=== PATIENT | female | born 1960 | race Two or more races ===

== ENCOUNTER 2018-11-08 07:00 | Inpatient (IN) ==
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
[~2018-11-08 07:00] MED LIST: ACETAMINOPHEN 500 MG TAB PO SCH; CEFAZOLIN 2000MG 2,000 MG/15 ML SYR IV SCH; CeleBREX 200 MG CAP PO SCH; GABAPENTIN 300 MG x 2 PO SCH; HYDROmorphone INJ 2 MG/ML SYR/VIAL ONE; LR 15ML/HR IV SCH; MIDAZOLAM HCL 1 MG/ML 2ML VIAL ONE; fentaNYL citrate 100 MCG/2 ML VIAL ONE
[2018-11-08 08:54] LABS: Appearance Urine Clear (Clear); Bilirubin Urine Negative (Negative); Blood Urine Negative (Negative); Color Urine Yellow; Glucose Urine UA Negative (Negative); Ketones Urine Negative (Negative); Leukocyte Esterase Urine Negative (Negative); Nitrite Urine Negative (Negative); Protein Urine Negative (Negative); Urobilinogen Urine Negative (Negative)
--- NOTE | 2018-11-08 09:11 | History & Physical Report ---
Date of Service November 08, 2018 Assessment & Plan (1) Neurogenic claudication due to lumbar spinal stenosis: Removal of instrumentation L2-S1 decompression and fusion T10-L2 with iliac bolts Present on Admission?: Yes History of Present Illness Chief Complaint: Back and bilateral leg pain Primary Care Provider: Melissa Alva This is a 58-year-old female who presents with back and bilateral leg pain. After failing extensive course of nonoperative care she is here for surgical intervention. Allergies Allergy/AdvReac Type Severity Reaction Status Date / Time iodine Allergy Severe "EVERYTHING Verified 10/23/18 09:17 SWELLS UP" bee venom protein (honey bee) Allergy Anaphylaxis Verified 10/04/18 10:24 povidone-iodine Allergy Redness of Verified 10/04/18 10:24 [From Betadine] Skin shellfish derived Allergy Anaphylaxis Verified 10/04/18 10:24 soap [From Betadine] Allergy Redness of Verified 10/04/18 10:24 Skin Home Medications Home Medications Medication Instructions Recorded Confirmed Type albuterol sulfate [Ventolin HFA] 2 puff INHALATION Q6H PRN 10/04/18 11/08/18 History ascorbic acid (vitamin C) [Vitamin 100 mg PO QAM 10/04/18 11/08/18 History C] baclofen 10 mg PO TID 10/04/18 11/08/18 History budesonide-formoterol [Symbicort] 2 puff INHALATION DAILY 10/04/18 11/08/18 History calcium carbonate [Calcium 600] 600 mg PO QPM 10/04/18 11/08/18 History citalopram 40 mg PO QPM 10/04/18 11/08/18 History cyanocobalamin (vitamin B-12) 500 mcg PO QAM 10/04/18 11/08/18 History [Vitamin B-12] diphenhydramine HCl [Banophen] 50 mg PO TID 10/04/18 11/08/18 History epinephrine [EpiPen] 0.3 mg IM Q3H PRN 10/04/18 10/04/18 History fluticasone propionate [Flonase 2 spray INTRANASAL QAM 10/04/18 11/08/18 History Allergy Relief] furosemide 40 mg PO UD 10/04/18 11/08/18 History gabapentin 800 mg PO TID 10/04/18 11/08/18 History hydrocodone-acetaminophen 1 tab PO TID PRN 10/04/18 11/08/18 History multivitamin 1 tab PO QAM 10/04/18 11/08/18 History omeprazole 40 mg PO QAM 10/04/18 11/08/18 History oxybutynin chloride 10 mg PO QPM 10/04/18 11/08/18 History potassium chloride 20 meq PO QPM 10/04/18 11/08/18 History ranitidine HCl 300 mg PO HS 10/04/18 11/08/18 History spironolactone 25 mg PO BID 10/04/18 11/08/18 History tiotropium bromide [Spiriva with 1 cap INHALATION DAILY 10/04/18 11/08/18 History HandiHaler] trazodone 50 mg PO HS 10/04/18 11/08/18 History Past Med/Surg History Family History Mother Family history of diabetes mellitus Uncle Family history of diabetes mellitus Aunt Family history of diabetes mellitus Social History Preferred Language: [place] Communication Ability: Effective Auth Specialist Required: No Beliefs That Will Affect Care: None Current Living Situation: Spouse Other Information That Helps Us Care for You: No Feels Safe at Home: Yes Safety Concerns: Feels Safe At This Time Smoking Status: Current every day smoker Hx Alcohol Use: No Hx Substance Use: No Physical Exam Vital Signs (Past 24 Hours): Last Vital Signs Temp 36.7 C 11/08/18 08:50 Pulse 69 11/08/18 08:50 Resp 18 11/08/18 08:50 BP 120/90 11/08/18 08:50 Pulse Ox 94 11/08/18 08:50 Results & Data Medications Administered Acetaminophen (Tylenol) 1,000 mg PO PREOP ODETTE Stop: 11/08/18 18:00 Last Admin: 11/08/18 08:33 Dose: 1,000 mg Documented by: [id number] Celecoxib (Celebrex) 200 mg PO PREOP ODETTE Stop: 11/08/18 18:00 Last Admin: 11/08/18 08:32 Dose: 200 mg Documented by: [id number] Gabapentin (Neurontin) 600 mg PO PREOP ODETTE Stop: 11/08/18 18:00 Last Admin: 11/08/18 08:33 Dose: Not Given Documented by: [id number] Lactated Ringer's (Lr) 1,000 mls @ 15 mls/hr IV .Q24H ODETTE Stop: 11/09/18 05:59 Last Admin: 11/08/18 08:33 Dose: 15 mls/hr Documented by: [id number]
--- NOTE | 2018-11-08 09:11 | History & Physical Bridge Note ---
Date of Service November 08, 2018 History & Physical Bridge Note I have examined the patient, reviewed the History & Physical and in the interval since the performance of the History & Physical I have noted the following changes of clinical significance: no changes noted
[2018-11-08] MEDS ORDERED: HYDROmorphone INJ 2 MG/ML SYR/VIAL ONE ×4 (09:21→13:15)
[2018-11-08] MEDS ORDERED: ALBUMIN HUMAN 5% 12.5 GM/250 ML VIAL IV ONE ×2 (09:21→13:15)
[2018-11-08] MEDS ORDERED: BUPIVACAINE/EPINEPHRINE 0.5% MPF 1:200,000 30 ML VIAL ONE (09:23)
[2018-11-08] MEDS ORDERED: BACITRACIN INJ 50,000 UNIT VIAL ONE (09:23)
[2018-11-08] MEDS ORDERED: THROMBIN FOR SOLN 20000 UNIT KIT ONE (10:15)
[2018-11-08] MEDS ORDERED: fentaNYL citrate 100 MCG/2 ML VIAL ONE ×7 (10:18→12:59)
[2018-11-08] MEDS ORDERED: FLOSEAL HEMOSTATIC MATRIX 10ML TOP ONE ×5 (10:21→12:41)
[2018-11-08] MEDS ORDERED: VANCOMYCIN HCL 1000MG/20ML VIAL ONE (10:52)
[2018-11-08] MEDS ORDERED: GENTAMICIN SULFATE 40 MG/ML 2 ML VIAL ONE (10:52)
[2018-11-08] MEDS ORDERED: ePHEDrine sulfate 50 MG/ML AMP IV PRN (10:55)
[2018-11-08] MEDS ORDERED: ONDANSETRON INJ 2 MG/ML 2 ML VIAL IV PRN (10:55)
[2018-11-08] MEDS ORDERED: ATROPINE SULFATE 0.1 MG/ML 10ML SYR IV PRN (10:55)
--- NOTE | 2018-11-08 10:59 | Procedure Note ---
Procedure Note Date of Service November 08, 2018 Radial arterial line placed in ASU2 prior to surgery in preparation for back surgery with Dr. Romeo. Patient on ASA monitors and given 2 mg midazolam and 50 mcg of fentanyl for sedation. Left wrist prepped with chlorhexidine and draped with sterile towels. Site infiltrated with 1 cc of 1% lidocaine. 20 G angiocath placed under sterile technique utilizing sterile gloves, surgical hats and masks. Catheter threaded using seldinger technique with return of pulsatile, bright red blood. Site covered with occlusive dressing and taped in place. Waveform consistent with correct arterial placement. After placement, fingers of procedural hand had normal perfusion. Patient tolerated procedure well without complications.
[2018-11-08] MEDS ORDERED: PROPOFOL IV EMULSION 10 MG/ML 20 ML VIAL IV ONE ×2 (11:25→11:26)
[2018-11-08] MEDS ORDERED: ESMOLOL HCL INJ 10 MG/ML 10ML VIAL IV ONE ×2 (11:25→14:02)
[2018-11-08] MEDS ORDERED: NEOSTIGMINE METHYLSULFATE 1 MG/ML 10ML VIAL ONE (11:26)
[2018-11-08] MEDS ORDERED: raNITIdine HCl 25 MG/ML VIAL ONE (11:26)
[2018-11-08] MEDS ORDERED: ROCURONIUM BROMIDE 10 MG/ML 5 ML VIAL ONE (11:26)
[2018-11-08] MEDS ORDERED: ONDANSETRON INJ 2 MG/ML 2 ML VIAL ONE (11:26)
[2018-11-08] MEDS ORDERED: GLYCOPYRROLATE 0.2 MG/ML VIAL ONE (11:26)
[2018-11-08] MEDS ORDERED: DEXAMETHASONE SOD INJ 4 MG/ML VIAL ONE (11:26)
[2018-11-08] MEDS ORDERED: ePHEDrine sulfate 50 MG/ML SYR ONE (11:26)
[2018-11-08] MEDS ORDERED: PHENYLEPHRINE 100MCG/ML 5ML SYR ONE (11:26)
[2018-11-08] MEDS ORDERED: METOCLOPRAMIDE HCL INJ 5 MG/ML 2 ML VIAL ONE (11:26)
[2018-11-08] MEDS ORDERED: LIDOCAINE HCL 2% 2 ML VIAL/AMP(20MG/ML) INFIL ONE (11:26)
[2018-11-08] MEDS ORDERED: ALBUTEROL HFA INHALER 8.5 GM ONE (11:47)
[2018-11-08] MEDS ORDERED: VOLUVEN IN NSS IV ONE (11:47)
[2018-11-08] MEDS ORDERED: CEFAZOLIN 250 MG/ML 1 GM VIAL ONE ×3 (12:56→13:50)
[2018-11-08 13:42] LABS: Hematocrit (blood only) 31.4 % (37-47); Hemoglobin 10.6 g/dL (12.0-16.0)
[2018-11-08 13:54] LABS: Hematocrit (blood only) 29.5 % (37-47); Hemoglobin 9.8 g/dL (12.0-16.0)
--- NOTE | 2018-11-08 13:59 | Operative Report ---
Post Operative Report Pre & Post Diagnosis Operation Date: 11/08/18 09:15 Pre-Op Diagnosis: LUMBAR SPINAL STENOSIS W/NEUROGENIC CLAUDICATION Post-Op Diagnosis: LUMBAR SPINAL STENOSIS W/NEUROGENIC CLAUDICATION Procedure Operation Date: 11/08/18 09:15 Actual Procedures #1 removal of posterior segmental instrumentation L2-S1. #2 expiration of fusion L2-S1. #3 lumbar decompression bilateral medial facetectomies foraminotomies T12-L1 L1-2. #4 posterior spinal fusion 10 to S1. #5 bilateral SI joint fusions. #6 placement posterior segmental instrumentation T10-S1 with bilateral iliac bolts. #7 interbody fusion L1-2. #8 history of peek cage 9 mm in height at L1-2. #9 placement infuse collagen sponge, mass graft in the posterior lateral gutters and ostial amp and interbody space. #10 placement of local autograft in the posterior lateral gutters. Surgeon Lalito Romeo DO Immigration Investigator Latoya Salas Estimated Blood Loss 1,450 Findings Consistent with Post-Op Diagnosis Specimens None Description of Procedure Patient was met with preoperatively case discussed all questions addressed. After informed consent obtained patient was taken to the operative suite underwent intubation and placed in a prone position on the Justo table on top of the Elmer frame. All bony prominences well-padded eyes inspected to ensure no external pressure placed upon but this point the thoracolumbar spine was prepped and draped in the normal sterile fashion. Sharp dissection with the assistance of Bovie cautery was performed down to and exposing the lamina and transverse processes of T10-11 T12-L1 and instrumentation at L2 L3-L4-L5 and S1 levels bilaterally. I also exposed the bilateral SI joints and iliac crest medially. Proceeded move the hardware bilaterally at L2 L3-L4-L5 and S1 explain the fusion mass noting it to be intact. Then performed a complete laminectomy of L1 and T12 from a caudal cephalad fashion including medial facetectomies fo raminotomies addressing severe lateral recess and foraminal disease. Pedicle screws were then placed in T10-T11 L1-L2 L4-5 and S1 levels bilaterally including placement of bilateral iliac bolts. Appropriate sized rods were then cut contoured and placed. By way of a transforaminal approach and left complete discectomy of L1 to was performed and endplates curetted to subcortical bleeding bone and a 9 x 22 mm peek cage filled with ostium bone graft tapped in position. The rods were then locked in final position. A cross-link was locked in position. The bilateral SI joints were then burred to subcortical bleeding bone and packed with infuse collagen sponge master graft. And then burred the lamina and transverse processes of T10-T11 T12-L1 and L2 and the remaining bone graft placed in the posterior gutters. A cross-link locked in position. A 15 round REYNOLD drain inserted. Incision was then closed with 1 Vicryl in the fascia 2-0 Vicryl subtenons seen for Monocryl for final skin closure. Steri-Strip sterile dressings placed. Patient will continue to PACU stable disc. Please note Latoya Salas present throughout the entire procedure involved in patient positioning complex portions of the surgery and final skin closure. I attest to the content of the Intraoperative Record and any orders documented therein. Any exceptions are noted below.
[2018-11-08] MEDS ORDERED: KETOROLAC 30 MG/ML VIAL ONE (14:07)
--- NOTE | 2018-11-08 14:23 | Fluoroscopy Report ---
LUMBAR SPINE, INTRAOPERATIVE FLUOROSCOPY HISTORY: L2-S1 hardware removal. T10-L2 decompression and fusion with iliac bones.. FLUOROSCOPY TIME: 38 seconds. FINDINGS: Intraoperative fluoroscopy was provided for the lumbar spine. 6 fluoroscopic spot images we re obtained. Posterior decompression fusion from T10 through S1 with bilateral sacroiliac screws. The hardware appears intact. IMPRESSION: Fluoroscopy provided for a T10-S1 fusion. Electronically signed by: Jeremias Velazquez M.D. 11/08/2018 2:22 PM
[2018-11-08] MEDS: fentaNYL citrate 100 MCG/2 ML VIAL IV PRN ×4 (15:05→15:20)
[2018-11-08] MEDS: HYDROmorphone INJ 1 MG/ML SYRINGE IV PRN ×4 (15:25→15:40)
--- NOTE | 2018-11-08 16:07 | Anesthesiology Progress Note ---
Date of Service November 08, 2018 Anesthesia Post Procedure Vital Signs Vital Signs: Temp Pulse Pulse Resp BP Pulse Ox 11/08/18 15:50 36.8 C 85 12 141/78 H 96 11/08/18 15:40 36.8 C 83 12 131/84 98 11/08/18 15:30 36.8 C 86 12 127/84 97 11/08/18 15:20 81 12 134/80 97 11/08/18 15:10 73 12 121/56 L 96 11/08/18 15:00 79 16 95/59 L 92 11/08/18 14:50 90 16 121/76 100 11/08/18 14:40 92 H 16 128/82 100 11/08/18 14:34 36.7 C 86 13 142/82 H 100 11/08/18 08:50 36.7 C 69 18 120/90 94 Pain Intensity Lower Back: Pain Intensity: 5 Notes Mental Status: alert / awake / arousable and participated in evaluation Patient Amnestic to Procedure: Yes Nausea / Vomiting: adequately controlled Pain: adequately controlled Airway Patency, RR, SpO2: stable & adequate BP & HR: stable & adequate Hydration State: stable & adequate Anesthetic Complications: no major complications apparent
[2018-11-08] MEDS ORDERED: SOD PHOSPHATE/SOD BIPHOSPHATE ENEMA 132 ML BTL PR PRN (16:32)
[2018-11-08] MEDS ORDERED: PROMETHAZINE HCL 12.5 MG in SODIUM CHLORIDE 0.9% 50 ML IV PRN (16:32)
[2018-11-08] MEDS ORDERED: METOCLOPRAMIDE HCL INJ 5 MG/ML 2 ML VIAL IV PRN (16:32)
[2018-11-08] MEDS ORDERED: FAMOTIDINE 20 MG TAB PO PRN (16:32)
[2018-11-08] MEDS ORDERED: ACETAMINOPHEN 500 MG TAB PO PRN (16:32)
[2018-11-08] MEDS ORDERED: ACETAMINOPHEN 1,000 MG/100 ML VIAL IV PRN (16:32)
[2018-11-08] MEDS ORDERED: LORazepam 0.5 MG TAB PO PRN (16:32)
[2018-11-08] MEDS ORDERED: FUROSEMIDE 40 MG TAB PO SCH (16:32)
[2018-11-08] MEDS ORDERED: MAGNESIUM HYDROXIDE SUSP 30 ML UDC PO PRN (16:32)
[2018-11-08] MEDS ORDERED: ALUMINUM/MAGNESIUM SUSP 30 ML UDC PO PRN (16:32)
[2018-11-08] MEDS ORDERED: ALBUTEROL HFA 8 GM INHALER INH PRN (16:32)
[2018-11-08] MEDS ORDERED: BACLOFEN 10 MG TAB PO PRN (16:32)
[2018-11-08] MEDS ORDERED: LORazepam 0.5 MG/1 ML VIAL IV PRN (16:32)
[2018-11-08] MEDS ORDERED: ONDANSETRON 4 MG TAB PO PRN (16:32)
[2018-11-08] MEDS ORDERED: DO NOT ADMINISTER FLU VACCINE PRN (16:32)
[2018-11-08] MEDS ORDERED: EPINEPHRINE ADULT AUTO-INJECT 0.3 MG SYR IM PRN (16:32)
[2018-11-08] MEDS ORDERED: DO NOT ADMINISTER PNEUMOCOCCAL VACCINE PRN (16:32)
[2018-11-08] MEDS ORDERED: BISACODYL 10 MG SUPP PR PRN (16:32)
[2018-11-08] MEDS: HYDROmorphone INJ 0.5 MG/0.5 ML SYR IV PRN ×2 (17:23→21:41)
[2018-11-08] MEDS: LACTATED RINGER'S 1,000 ML IV SCH ×2 (17:58→21:43)
[2018-11-08] MEDS: CEFAZOLIN 2000MG 2,000 MG/15 ML SYR IV SCH (18:54)
[2018-11-08] MEDS: SPIRONOLACTONE 25 MG TAB PO SCH (18:54)
[2018-11-08] MEDS: GABAPENTIN 800 MG TAB PO SCH ×2 (18:54→21:37)
[2018-11-08] MEDS: KETOROLAC TROMETHAMINE 15 MG/ML VIAL IV SCH ×2 (18:55→23:40)
[2018-11-08] MEDS: NICOTINE 21 MG/24 HR TDSY TD SCH (19:04)
[2018-11-08] MEDS: HYDROCODONE/ACETAMINOPHEN 10/325 TAB PO PRN (19:08)
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
[2018-11-08] MEDS: TRAZODONE HCL 50 MG TAB PO SCH (21:31)
[2018-11-08] MEDS: CITALOPRAM 40 MG TAB PO SCH (21:31)
[2018-11-08] MEDS: OXYBUTYNIN CHLORIDE XL 5 MG TABCR PO SCH (21:31)
[2018-11-08] MEDS: POTASSIUM CHLORIDE 20 MEQ TABCR PO SCH (21:32)
[2018-11-08] MEDS: DOCUSATE SODIUM/SENNA 50/8.6MG TAB PO SCH (21:35)
[2018-11-08] MEDS: CALCIUM CARBONATE 1250MG TAB PO SCH (21:35)
[2018-11-09] MEDS: CEFAZOLIN 2000MG 2,000 MG/15 ML SYR IV SCH (02:45)
[2018-11-09] MEDS: HYDROCODONE/ACETAMINOPHEN 10/325 TAB PO PRN ×3 (03:38→23:08)
[2018-11-09] MEDS: POLYETHYLENE (MIRALAX) 17 GM PACK PO SCH ×3 (05:14→18:41)
[2018-11-09] MEDS: KETOROLAC TROMETHAMINE 15 MG/ML VIAL IV SCH ×2 (05:14→13:23)
[2018-11-09 07:31] LABS: Basophils # (auto) 0.04 K/uL (0-0.2); Basophils % (auto) 0.3 %; Eosinophils # (auto) 0.03 K/uL (0-0.5); Eosinophils % (auto) 0.2 %; Hematocrit (blood only) 23.9 % (37-47); Immature Granulocytes # (auto) 0.03 K/uL (0.00-0.02); Immature Granulocytes % (auto) 0.2 %; Lymphocytes # (auto) 2.36 K/uL (1.2-3.4); Lymphocytes % (auto) 18.7 %; Mean Corpuscular Hgb Conc 33.5 g/dL (32-36); Mean Corpuscular Volume 91.6 fL (80-100); Mean Platelet Volume 9.1 fL (7.4-10.4); Monocytes # (auto) 0.92 K/uL (0.11-0.59); Monocytes % (auto) 7.3 %; Neutrophils # (auto) 9.21 K/uL (1.4-6.5); Neutrophils % (auto) 73.3 %; Platelet Count 213 K/uL (130-400); RDW Coefficient of Variation 13.2 % (11.5-14.5); RDW Standard Deviation 44.2 fL (36.4-46.3); Red Blood Count 2.61 M/uL (4.2-5.4); White Blood Count 12.59 K/uL (4.8-10.8)
[2018-11-09] MEDS: HYDROmorphone INJ 0.5 MG/0.5 ML SYR IV PRN ×2 (07:44→15:53)
[2018-11-09 08:06] LABS: BUN Creatinine Ratio 13.8 (10-20); Calcium 8.3 mg/dl (8.5-10.1); Creatinine Clr Calc Pharmacy 93.2 ml/min; Est GFR (African American) 102.6; Est GFR (Non-African American) 88.5
[2018-11-09 08:09] LABS: RBC Morphology Unremarkable
--- NOTE | 2018-11-09 08:18 | Anesthesiology Progress Note ---
Date of Service November 09, 2018 Anesthesia Post Procedure Vital Signs Vital Signs: Temp Pulse Pulse Pulse Resp BP BP 11/09/18 07:32 89/56 L 11/09/18 07:25 36.6 C 65 18 70/43 L 11/09/18 03:14 96/57 L 11/09/18 03:09 36.9 C 77 14 86/53 L 11/08/18 23:32 102/63 11/08/18 23:28 36.9 C 76 12 86/50 L 11/08/18 20:06 94/58 L 11/08/18 19:21 36.3 C L 82 17 93/63 L 11/08/18 18:50 36.5 C 88 18 101/67 11/08/18 18:15 93 H 17 107/71 11/08/18 17:12 83 18 111/71 11/08/18 16:46 36.4 C L 79 17 92/49 L 11/08/18 16:15 36.4 C L 91 H 16 126/67 11/08/18 15:50 36.8 C 85 12 141/78 H 11/08/18 15:40 36.8 C 83 12 131/84 11/08/18 15:30 36.8 C 86 12 127/84 11/08/18 15:20 81 12 134/80 11/08/18 15:10 73 12 121/56 L 11/08/18 15:00 79 16 95/59 L 11/08/18 14:50 90 16 121/76 11/08/18 14:40 92 H 16 128/82 11/08/18 14:34 36.7 C 86 13 142/82 H 11/08/18 08:50 36.7 C 69 18 120/90 Pulse Ox 11/09/18 07:32 11/09/18 07:25 98 11/09/18 03:14 11/09/18 03:09 97 11/08/18 23:32 98 11/08/18 23:28 85 L 11/08/18 20:06 11/08/18 19:21 94 11/08/18 18:50 95 11/08/18 18:15 97 11/08/18 17:12 97 11/08/18 16:46 96 11/08/18 16:15 97 11/08/18 15:50 96 11/08/18 15:40 98 11/08/18 15:30 97 11/08/18 15:20 97 11/08/18 15:10 96 11/08/18 15:00 92 11/08/18 14:50 100 11/08/18 14:40 100 11/08/18 14:34 100 11/08/18 08:50 94 Pain Intensity Lower Back: Pain Intensity: 4 Left Leg: Pain Intensity: 6 Notes Mental Status: alert / awake / arousable and participated in evaluation Patient Amnestic to Procedure: Yes Nausea / Vomiting: adequately controlled Pain: adequately controlled Airway Patency, RR, SpO2: stable & adequate BP & HR: stable & adequate Hydration State: stable & adequate Anesthetic Complications: no major complications apparent and Pt Satisfied with anesthetic care
[2018-11-09] MEDS ORDERED: ASCORBIC ACID 100 MG PO SCH (09:00)
[2018-11-09] MEDS: GABAPENTIN 800 MG TAB PO SCH ×3 (09:53→21:23)
[2018-11-09] MEDS: SPIRONOLACTONE 25 MG TAB PO SCH ×2 (09:53→18:40)
[2018-11-09] MEDS: FLUTICASONE PROPIONATE NA SPR 16 GM BTL SCH (09:53)
[2018-11-09] MEDS: NICOTINE 21 MG/24 HR TDSY TD SCH (09:53)
[2018-11-09] MEDS: MULTIVITAMIN TAB PO SCH (09:54)
[2018-11-09] MEDS: CYANOCOBALAMIN 500 MCG TABLET (VITAMIN B-12) PO SCH (09:54)
[2018-11-09] MEDS: PANTOprazole 40 MG TAB PO SCH (09:54)
[2018-11-09] MEDS: BUDESONIDE/FORMOTEROL FUMARATE 160/4.5 60 PUFFS/INHALER INH SCH (09:56)
[2018-11-09] MEDS: TIOTROPIUM BROMIDE 5 PUFF/90 MCG INH INH SCH (09:56)
[2018-11-09] MEDS ORDERED: SODIUM CHLORIDE 0.9% 250 ML IV PRN ×2 (11:56→17:56)
--- NOTE | 2018-11-09 17:57 | Orthopedic Progress Note ---
Date of Service November 09, 2018 Assessment & Plan (1) Neurogenic claudication due to lumbar spinal stenosis: At this time we will continue physical therapy I will monitor her REYNOLD output and possible discharge home early next week. Present on Admission?: Yes (2) Acute blood loss as cause of postoperative anemia: Type and cross and transfuse 2 units packed red blood cells Present on Admission?: No Subjective Back pain is controlled leg symptoms improved Physical Exam Vital Signs (Past 24 Hours): Last Vital Signs Temp 37.1 C 11/09/18 17:46 Pulse 73 11/09/18 17:46 Resp 17 11/09/18 17:46 BP 80/45 L 11/09/18 17:46 Pulse Ox 98 11/09/18 17:46 Physical Exam: Patient is in the chair at bedside. She appears comfortable. Is good strength testing.
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
[2018-11-09 20:27] LABS: Hematocrit (blood only) 30.5 % (37-47); Hemoglobin 10.2 g/dL (12.0-16.0)
[2018-11-09] MEDS ORDERED: LACTATED RINGER'S 1,000 ML IV SCH (21:00)
[2018-11-09] MEDS: OXYBUTYNIN CHLORIDE XL 5 MG TABCR PO SCH (21:23)
[2018-11-09] MEDS: CITALOPRAM 40 MG TAB PO SCH (21:23)
[2018-11-09] MEDS: DOCUSATE SODIUM/SENNA 50/8.6MG TAB PO SCH (21:24)
[2018-11-09] MEDS: POTASSIUM CHLORIDE 20 MEQ TABCR PO SCH (21:28)
[2018-11-09] MEDS: CALCIUM CARBONATE 1250MG TAB PO SCH (21:30)
[2018-11-09] MEDS: TRAZODONE HCL 50 MG TAB PO SCH (21:30)
[2018-11-09] MEDS: TRAMADOL HCL 50 MG TABLET PO PRN (21:37)
[2018-11-10] MEDS: POLYETHYLENE (MIRALAX) 17 GM PACK PO SCH ×2 (00:10→06:05)
[2018-11-10] MEDS: HYDROmorphone INJ 0.5 MG/0.5 ML SYR IV PRN ×4 (01:35→16:03)
[2018-11-10 06:08] LABS: Basophils # (auto) 0.08 K/uL (0-0.2); Basophils % (auto) 0.7 %; Eosinophils # (auto) 0.38 K/uL (0-0.5); Eosinophils % (auto) 3.3 %; Hemoglobin 9.9 g/dL (12.0-16.0); Immature Granulocytes # (auto) 0.04 K/uL (0.00-0.02); Immature Granulocytes % (auto) 0.3 %; Lymphocytes # (auto) 2.63 K/uL (1.2-3.4); Lymphocytes % (auto) 22.8 %; Mean Corpuscular Volume 89.8 fL (80-100); Mean Platelet Volume 9.2 fL (7.4-10.4); Monocytes % (auto) 8.7 %; Neutrophils # (auto) 7.42 K/uL (1.4-6.5); Neutrophils % (auto) 64.2 %; Platelet Count 206 K/uL (130-400); RDW Coefficient of Variation 14.7 % (11.5-14.5); RDW Standard Deviation 48.5 fL (36.4-46.3); Red Blood Count 3.34 M/uL (4.2-5.4); White Blood Count 11.55 K/uL (4.8-10.8)
[2018-11-10] MEDS: ONDANSETRON INJ 2 MG/ML 2 ML VIAL IV PRN (07:43)
[2018-11-10] MEDS: BUDESONIDE/FORMOTEROL FUMARATE 160/4.5 60 PUFFS/INHALER INH SCH (08:42)
[2018-11-10] MEDS: FLUTICASONE PROPIONATE NA SPR 16 GM BTL SCH (08:43)
[2018-11-10] MEDS: TIOTROPIUM BROMIDE 5 PUFF/90 MCG INH INH SCH (08:43)
[2018-11-10] MEDS: NICOTINE 21 MG/24 HR TDSY TD SCH (10:05)
[2018-11-10] MEDS: GABAPENTIN 800 MG TAB PO SCH ×3 (10:08→20:18)
[2018-11-10] MEDS: MULTIVITAMIN TAB PO SCH (10:08)
[2018-11-10] MEDS: CYANOCOBALAMIN 500 MCG TABLET (VITAMIN B-12) PO SCH (10:09)
[2018-11-10] MEDS: PANTOprazole 40 MG TAB PO SCH (10:09)
[2018-11-10] MEDS: SPIRONOLACTONE 25 MG TAB PO SCH ×2 (10:10→17:29)
--- NOTE | 2018-11-10 11:14 | Orthopedic Progress Note ---
Date of Service November 10, 2018 Assessment & Plan (1) Neurogenic claudication due to lumbar spinal stenosis: This time we will discontinue her MiraLAX. We will continue to encourage her to undergo physical therapy and ambulation as tolerated. Hopefully allow her to discharge home Monday. Present on Admission?: Yes Subjective Back pain is controlled leg symptoms improved. She is struggling with nausea and vomiting today. She believes is related to the MiraLAX. Physical Exam Vital Signs (Past 24 Hours): Last Vital Signs Temp 36.8 C 11/10/18 07:18 Pulse 73 11/10/18 07:18 Resp 15 11/10/18 07:18 BP 95/63 L 11/10/18 07:18 Pulse Ox 90 11/10/18 07:18 Physical Exam: At this time she is in bed. She is up and ambulate in earlier. She demonstrates good strength testing.
[2018-11-10] MEDS: TRAMADOL HCL 50 MG TABLET PO PRN (12:58)
[2018-11-10] MEDS: HYDROCODONE/ACETAMINOPHEN 10/325 TAB PO PRN ×2 (14:44→21:01)
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
[2018-11-10] MEDS: CALCIUM CARBONATE 1250MG TAB PO SCH (20:17)
[2018-11-10] MEDS: OXYBUTYNIN CHLORIDE XL 5 MG TABCR PO SCH (20:18)
[2018-11-10] MEDS: CITALOPRAM 40 MG TAB PO SCH (20:18)
[2018-11-10] MEDS: POTASSIUM CHLORIDE 20 MEQ TABCR PO SCH (20:18)
[2018-11-10] MEDS: DOCUSATE SODIUM/SENNA 50/8.6MG TAB PO SCH (20:18)
[2018-11-10] MEDS: TRAZODONE HCL 50 MG TAB PO SCH (21:01)
[2018-11-11] MEDS: TRAMADOL HCL 50 MG TABLET PO PRN ×2 (01:22→16:23)
[2018-11-11] MEDS: HYDROmorphone INJ 0.5 MG/0.5 ML SYR IV PRN ×3 (04:20→19:06)
[2018-11-11] MEDS: HYDROCODONE/ACETAMINOPHEN 10/325 TAB PO PRN (07:40)
[2018-11-11] MEDS: NICOTINE 21 MG/24 HR TDSY TD SCH (07:42)
[2018-11-11] MEDS: GABAPENTIN 800 MG TAB PO SCH ×3 (07:42→21:32)
[2018-11-11] MEDS: MULTIVITAMIN TAB PO SCH (07:42)
[2018-11-11] MEDS: CYANOCOBALAMIN 500 MCG TABLET (VITAMIN B-12) PO SCH (07:42)
[2018-11-11] MEDS: BUDESONIDE/FORMOTEROL FUMARATE 160/4.5 60 PUFFS/INHALER INH SCH (07:43)
[2018-11-11] MEDS: PANTOprazole 40 MG TAB PO SCH (07:43)
[2018-11-11] MEDS: FLUTICASONE PROPIONATE NA SPR 16 GM BTL SCH (07:44)
[2018-11-11] MEDS: SPIRONOLACTONE 25 MG TAB PO SCH ×2 (07:44→16:23)
[2018-11-11] MEDS: TIOTROPIUM BROMIDE 5 PUFF/90 MCG INH INH SCH (07:46)
[2018-11-11] MEDS: ONDANSETRON INJ 2 MG/ML 2 ML VIAL IV PRN (09:41)
--- NOTE | 2018-11-11 11:13 | Orthopedic Progress Note ---
Date of Service November 11, 2018 Assessment & Plan (1) Neurogenic claudication due to lumbar spinal stenosis: This time we will continue physical therapy. DC drain today. Depending on her progress she may consider discharge home tomorrow. Present on Admission?: Yes Subjective Patient's chair today. She states her nausea is improved. She is having flatus but no bowel movement. Should her leg pain is improving. She is ambling with a walker relatively well. Physical Exam Vital Signs (Past 24 Hours): Last Vital Signs Temp 36.9 C 11/11/18 07:57 Pulse 83 11/11/18 07:57 Resp 17 11/11/18 07:57 BP 106/71 11/11/18 07:57 Pulse Ox 95 11/11/18 07:57 Physical Exam: On exam she is in the chair at bedside she has good strength testing. She is wearing her brace.
--- NOTE | 2018-11-11 12:31 | XRay Report ---
XR lumbar spine 2-3V HISTORY: 58 years-old Female postop standing films acute low back pain COMPARISON: Fluoroscopic images of the lumbar spine 11/08/2017 TECHNIQUE: 3 views of the lumbar spine FINDINGS: Convex right curvature of the lumbar spine. Extensive posterior interbody kacy and screw fusion hardwa re extends from T11 through the sacrum with bilateral iliac bolts. No acute fracture identified. Ther e appears be a few millimeters anterolisthesis of L5 on S1 which is age-indeterminate. Pledgets are n oted about the posterior tissues of the lower lumbar spine. Surgical clips project over the right upp er quadrant abdomen. Gaseous distended bowel noted about the left abdomen. IMPRESSION: 1. Postoperative changes of the lumbar spine as above without acute fracture 2. A few millimeters anterolisthesis L5 on S1 is age-indeterminate.. The above report was generated using voice recognition software. It may contain grammatical, syntax o r spelling errors. Electronically signed by: Naren Silverio M.D. 11/11/2018 12:29 PM
[2018-11-11] MEDS: OXYBUTYNIN CHLORIDE XL 5 MG TABCR PO SCH (21:31)
[2018-11-11] MEDS: POTASSIUM CHLORIDE 20 MEQ TABCR PO SCH (21:31)
[2018-11-11] MEDS: CITALOPRAM 40 MG TAB PO SCH (21:31)
[2018-11-11] MEDS: TRAZODONE HCL 50 MG TAB PO SCH (21:31)
[2018-11-11] MEDS: CALCIUM CARBONATE 1250MG TAB PO SCH (21:32)
[2018-11-11] MEDS: DOCUSATE SODIUM/SENNA 50/8.6MG TAB PO SCH (21:32)
[2018-11-12] MEDS: HYDROmorphone INJ 0.5 MG/0.5 ML SYR IV PRN ×2 (00:22→04:16)
[2018-11-12] MEDS: TRAMADOL HCL 50 MG TABLET PO PRN (07:49)
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
[2018-11-12] MEDS: PANTOprazole 40 MG TAB PO SCH (09:55)
[2018-11-12] MEDS: SPIRONOLACTONE 25 MG TAB PO SCH ×2 (09:55→17:57)
[2018-11-12] MEDS: GABAPENTIN 800 MG TAB PO SCH ×3 (09:55→21:43)
[2018-11-12] MEDS: MULTIVITAMIN TAB PO SCH (09:56)
[2018-11-12] MEDS: FLUTICASONE PROPIONATE NA SPR 16 GM BTL SCH (09:56)
[2018-11-12] MEDS: CYANOCOBALAMIN 500 MCG TABLET (VITAMIN B-12) PO SCH (09:56)
[2018-11-12] MEDS: NICOTINE 21 MG/24 HR TDSY TD SCH (09:56)
[2018-11-12] MEDS: TIOTROPIUM BROMIDE 5 PUFF/90 MCG INH INH SCH (09:57)
[2018-11-12] MEDS: BUDESONIDE/FORMOTEROL FUMARATE 160/4.5 60 PUFFS/INHALER INH SCH (09:57)
[2018-11-12] MEDS: HYDROCODONE/ACETAMINOPHEN 10/325 TAB PO PRN (10:07)
[2018-11-12 10:10] LABS: Hematocrit (blood only) 30.7 % (37-47); Hemoglobin 9.9 g/dL (12.0-16.0)
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
[2018-11-12] MEDS: OXYCODONE HCL IR 5 MG TAB (IMMEDIATE RELEASE) PO PRN ×3 (12:31→20:46)
--- NOTE | 2018-11-12 15:43 | Orthopedic Progress Note ---
Date of Service November 12, 2018 Assessment & Plan (1) Neurogenic claudication due to lumbar spinal stenosis: This time we will change her medications from hydrocodone to oxycodone in hopes that this provides some additional pain relief. We will advance her bowel regimen and possible discharge home tomorrow. Present on Admission?: Yes Subjective Patient's complaining of back pain and some left leg soreness along the calf. She has been able to ambulate with a walker reasonably well. She is able to perform several laps in the halls. She has not had a bowel movement as of yet. Physical Exam Vital Signs (Past 24 Hours): Last Vital Signs Temp 36.8 C 11/12/18 12:05 Pulse 84 11/12/18 13:27 Resp 16 11/12/18 13:27 BP 112/76 11/12/18 13:29 Pulse Ox 94 11/12/18 13:27 Physical Exam: On exam she is ambulating with her walker. She does exhibit some tenderness palpation of the left calf musculature. There is no erythema no appreciable swelling.
--- NOTE | 2018-11-12 15:49 | Ultrasound Report ---
BILATERAL LOWER EXTREMITY VENOUS DOPPLER CLINICAL HISTORY: left leg pain COMPARISON STUDY: No previous studies for comparison. TECHNIQUE: Sonography of the deep venous system of the bilateral lower extremities was performed. Co mpression and augmentation were evaluated. FINDINGS: The bilateral common femoral, superficial femoral and popliteal veins were compressible. A ugmentation was normal. Flow was shown within the deep calf vessels. Exam is compromised by suboptima l penetration. IMPRESSION: Technically difficult exam but no evidence of deep venous thrombus within the bilateral l ower extremities. Electronically signed by: Omi Adair M.D. 11/12/2018 3:48 PM
[2018-11-12] MEDS: POTASSIUM CHLORIDE 20 MEQ TABCR PO SCH (21:42)
[2018-11-12] MEDS: CITALOPRAM 40 MG TAB PO SCH (21:42)
[2018-11-12] MEDS: DOCUSATE SODIUM/SENNA 50/8.6MG TAB PO SCH (21:42)
[2018-11-12] MEDS: TRAZODONE HCL 50 MG TAB PO SCH (21:42)
[2018-11-12] MEDS: CALCIUM CARBONATE 1250MG TAB PO SCH (21:43)
[2018-11-12] MEDS: OXYBUTYNIN CHLORIDE XL 5 MG TABCR PO SCH (21:43)
[2018-11-13] MEDS: OXYCODONE HCL IR 5 MG TAB (IMMEDIATE RELEASE) PO PRN ×3 (02:28→11:12)
[2018-11-13 07:11] LABS: Hematocrit (blood only) 27.8 % (37-47)
[2018-11-13] MEDS: TRAMADOL HCL 50 MG TABLET PO PRN (07:34)
[2018-11-13] MEDS: MULTIVITAMIN TAB PO SCH (09:10)
[2018-11-13] MEDS: GABAPENTIN 800 MG TAB PO SCH ×2 (09:11→14:07)
[2018-11-13] MEDS: FLUTICASONE PROPIONATE NA SPR 16 GM BTL SCH (09:11)
[2018-11-13] MEDS: TIOTROPIUM BROMIDE 5 PUFF/90 MCG INH INH SCH (09:12)
[2018-11-13] MEDS: PANTOprazole 40 MG TAB PO SCH (09:12)
[2018-11-13] MEDS: CYANOCOBALAMIN 500 MCG TABLET (VITAMIN B-12) PO SCH (09:12)
[2018-11-13] MEDS: BUDESONIDE/FORMOTEROL FUMARATE 160/4.5 60 PUFFS/INHALER INH SCH (09:13)
[2018-11-13] MEDS: SPIRONOLACTONE 25 MG TAB PO SCH (09:14)
[2018-11-13] MEDS: NICOTINE 21 MG/24 HR TDSY TD SCH (09:15)
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
--- NOTE | 2018-11-13 11:40 | Discharge Summary ---
Date of Service November 13, 2018 Admission HPI Per Admitting Provider This is a 58-year-old female who presents with back and bilateral leg pain. After failing extensive course of nonoperative care she is here for surgical intervention. Principal Diagnosis Lumbar spinal stenosis with neurogenic claudication Discharge Data Allergies Allergy/AdvReac Type Severity Reaction Status Date / Time iodine Allergy Severe "EVERYTHING Verified 10/23/18 09:17 SWELLS UP" bee venom protein (honey bee) Allergy Anaphylaxis Verified 10/04/18 10:24 povidone-iodine Allergy Redness of Verified 10/04/18 10:24 [From Betadine] Skin shellfish derived Allergy Anaphylaxis Verified 10/04/18 10:24 soap [From Betadine] Allergy Redness of Verified 10/04/18 10:24 Skin Consultations 11/08/18 16:32 Consult Case Management - Discharge Planning Routine Consult Hospitalist Routine 11/12/18 22:39 Consult Patient Rep / Service Excellence [Consult Patient Services] Routine Procedures Performed Operation Date: 11/08/18 09:15 Actual Procedures p #2 expiration of fusion L2-S1. #3 lumbar decompression bilateral medial facetectomies foraminotomies T12-L1 L1-2. #4 posterior spinal fusion 10 to S1. #5 bilateral SI joint fusions. #6 placement posterior segmental instrumentation T10-S1 with bilateral iliac bolts. #7 interbody fusion L1-2. #8 history of peek cage 9 mm in height at L1-2. #9 placement infuse collagen sponge, mass graft in the posterior lateral gutters and ostial amp and interbody space. #10 placement of local autograft in the posterior lateral gutters(Not Applicable) - Lalito Romeo DO s #1 removal of posterior segmental instrumentation L2-S1. (Not Applicable) - Lalito Romeo DO Ordered Studies 11/08/18 09:15 FL fluoroscopy <1hr Routine FL lumbar spine 2-3V Routine 11/12/18 11:12 US venous doppler LE Urgent Hospital Course (1) Neurogenic claudication due to lumbar spinal stenosis: Patient underwent multilevel lumbar decompression fusion tolerated this well was taken to the orthopedic floor postoperative. She was up in a.m. leading postop day #1 progressed well throughout her stay. REYNOLD drain decreasing appropriately. Separately she was discharged home with home health. Discharge orders and instructions from the chart for further review. Total Time Total Time Spent Total Time Spent (In Minutes): Not applicable Discharge Plan Discharge Items Patient Disposition: Home - Home Health Services Reason For Visit: LUMBAR SPINAL STENOSIS W/NEUROGENIC CLAUDICATION Discharge Diagnosis: lumbar stenosis Discharge Goals: Decrease discomfort Activity: Per 'Additional Instructions' section Non-emergency contact: Primary Care Provider Call non-emergency contact if: you have any medication questions Follow-up/Referrals: Melissa Alva C.R.N.P. [Primary Care Provider] - 11/16/18 3:10 pm (Follow up with your PCP at schedule time above for your hospital follow up and to discuss re-initiation of lasix) Diet: Regular Addtl Provider Instructions: ACTIVITY RECOMMENDATIONS: SELF CARE INSTRUCTIONS AFTER THORACIC/LUMBAR FUSIONS 1. You may walk to your tolerance. It is good exercise for your legs and back. Expect some back and intermittent leg aches and pains. 2. You may perform "counter-top" level activities (make a sandwich, juan jose with a project, etc.). 3. No bending or lifting of more than 10 pounds or back twisting of any nature (roll like a log when turning in bed). 4. You may ride in a car for 20-30 minutes at a time. No driving until after your first visit with your doctor. 5. Frequent changes of position and restricting sitting to 30 minutes at a time will help limit the amount of back spasms and stiffness you may experience. 6. You may discontinue the use of ambulatory aids (cane, crutches, etc.) once your strength and confidence allow. 7. You may clinical nurse occupational medicine the shower and let water strike your incision when you arrive home at least once daily. Do not take a tub bath, sit in a hot tub or go into a swimming pool until after your first recheck in the office. SPECIAL CARE INSTRUCTIONS: VERY IMPORTANT TO READ AND REVIEW A. Your surgical incision has been closed with a cosmetic suture under the skin that will dissolve in about 6 weeks. In 14 days, you can use a pair of clean scissors and cut the suture that is left outside of the skin at the ends of your incision. 1. The small skin tapes can be removed 7 days after surgery if they have not fallen off by that point. 2. You may keep the wound open to air as much as possible to promote healing after post-op day number 5 unless told otherwise by your doctor. 3. If you think the wound looks like it is becoming infected (redness or worsening drainage) and/or you are experiencing fever, chill or worsening back pain and muscle spasms, contact the office so that we may evaluate you as soon as possible. B. Complications are uncommon, but please contact us if you have any signs or symptoms of: 1. wound infection (fever higher than 102.5 degrees F, redness, separation of wound, drainage, or increasing pain from the incision) 2. blood clots in legs (pain, swelling, redness and warmth in legs) 3. urinary tract infection (fever higher than 102.5 degrees F, burning upon urination or increased frequency of urination) 4. nerve problems (inability to walk on your toes or heels, numbness, loss of bowel or bladder control) 5. any other symptoms that concern you C. Please call the office at if you have any concerns or questions about your operation or recovery. D. No smoking! Smoking drastically decreases the chance of a solid fusion. E. Do not take any anti-inflammatory medications (Indocin, Advil, Motrin, Aspirin, Naprosyn, etc.) as these may inhibit the chance of a solid fusion. Tylenol is okay to take for pain. MANAGING PAIN AFTER SPINAL SURGERY 1. Narcotic medication is intended for short-term use and will be provided for surgical pain. Surgical pain usually lasts for a period of 4-6 weeks. Narcotic medication includes Percocet, Vicodin, Darvocet, Tylenol #3 or Lortab. 2. Longer-term pain is more appropriately treated with non-narcotic medication such as Tylenol ES. 3. Muscle spasm is not appropriately treated with narcotics. Muscle relaxers such as Soma, Flexeril or Skelaxin can be used along with Tylenol ES. 4. Remember that we all live with some "aches and pains". This is not unusual or uncommon after an injury or as we get older. a. Back pain is expected and may include muscle spasms for 4 to 6 weeks after surgery. The pain should gradually improve. If the pain worsens for no apparent reason, please contact the office. b. Intermittent leg pain may also be experienced and should not be concerned about unless it worsens for no apparent reason. If so, please contact the office. 5. We will provide appropriate medication within the normal guidelines of their prescribed use. We will also be very cautious and aware of potential abuse and extended duration of patients' medication needs. a. Pain medications are for your comfort and to assist with sleep and rest so that the tissue can heal. They are not provided in order to return to normal activity and should not be used through the day. To do so or worsening pain at night can result from ongoing tissue damage and development of tolerance to the prescribed medicine. 6. Please allow 2-3 days to process refills. Prescriptions will not be mailed but must be picked up at the office. FOLLOW UP VISIT: Keep your scheduled follow-up appointment. Any questions, please call the office at . Recommend to continue to hold your lasix until you follow up with your Primary Care Provider as scheduled Continue to take your Aldactone as prescribed. If you notice increased swelling or weight gain > 5 lbs recommending resuming lasix as needed Prescriptions: New hydrocodone-acetaminophen [[place]] 10-325 mg Tablet 1 tab PO TID PRN (Reason: Pain) Qty: 40 RF: 0 oxycodone 5 mg Tablet 10 mg PO Q4 PRN (Reason: Pain, Severe) Qty: 30 RF: 0 Continued multivitamin Tablet 1 tab PO QAM RF: 0 furosemide 40 mg Tablet 40 mg PO UD RF: 0 citalopram 40 mg Tablet 40 mg PO QPM RF: 0 trazodone 50 mg Tablet 50 mg PO HS RF: 0 oxybutynin chloride 10 mg Tablet Extended Release 24hr 10 mg PO QPM RF: 0 ranitidine HCl 300 mg Tablet 300 mg PO HS RF: 0 hydrocodone-acetaminophen 10-325 mg Tablet 1 tab PO TID PRN (Reason: Pain) RF: 0 omeprazole 40 mg Capsule,Delayed Release(Dr/Ec) 40 mg PO QAM RF: 0 spironolactone 25 mg Tablet 25 mg PO BID RF: 0 calcium carbonate [Calcium 600] 600 mg calcium (1,500 mg) Tablet 600 mg PO QPM RF: 0 cyanocobalamin (vitamin B-12) [Vitamin B-12] 500 mcg Tablet 500 mcg PO QAM RF: 0 gabapentin 800 mg Tablet 800 mg PO TID RF: 0 baclofen 10 mg Tablet 10 mg PO TID RF: 0 diphenhydramine HCl [Banophen] 25 mg Capsule 50 mg PO TID RF: 0 Vitamin C 100 mg Tablet 100 mg PO QAM RF: 0 epinephrine [EpiPen] 0.3 mg/0.3 mL Auto-Injector 0.3 mg IM Q3H PRN (Reason: Anaphylaxis) RF: 0 albuterol sulfate [Ventolin HFA] 90 mcg/actuation Hfa Aerosol Inhaler 2 puff INHALATION Q6H PRN (Reason: Shortness Of Breath) RF: 0 fluticasone propionate [Flonase Allergy Relief] 50 mcg/actuation [place],Suspension 2 spray INTRANASAL QAM RF: 0 Spiriva with HandiHaler 18 mcg Capsule, W/Inhalation Device 1 cap INHALATION DAILY RF: 0 Symbicort 160-4.5 mcg/actuation Hfa Aerosol Inhaler 2 puff INHALATION DAILY RF: 0 potassium chloride 20 mEq Tablet Extended Release 20 meq PO QPM RF: 0 Stand-Alone Forms: [facility] Discharge Orders: Discharge Order (Routine); Ordered 11/13/18 Ordered By: Lalito Romeo Admission Data Admit Date/Time: 11/08/18 14:06 Attending Provider: Skip Cano Admit Provider: Lalito Romeo Primary Care Provider: Melissa Alva Other Providers: Christiano Isidro ; Dontae Grewal ; Lalito Romeo Service: Surgical Services
== END 2018-11-13 14:36 | disposition home health service (06) | DRG 454 ==
LOC: ASU 07:00 → 3W 14:06 → SUATTDRO 14:06
DX: Z98.1 Arthrodesis status; Z91.048 Other nonmedicinal substance allergy status; M48.062 Spinal stenosis, lumbar region with neurogenic claudication; N39.41 Urge incontinence; G47.33 Obstructive sleep apnea (adult) (pediatric); M81.0 Age-related osteoporosis without current pathological fracture; Z91.013 Allergy to seafood; D62 Acute posthemorrhagic anemia; R60.9 Edema, unspecified; G89.21 Chronic pain due to trauma; E66.01 Morbid (severe) obesity due to excess calories; Z99.89 Dependence on other enabling machines and devices; Z79.899 Other long term (current) drug therapy; F32.9 Major depressive disorder, single episode, unspecified; J44.9 Chronic obstructive pulmonary disease, unspecified; R11.2 Nausea with vomiting, unspecified; Z90.2 Acquired absence of lung [part of]; Z68.41 Body mass index [BMI] 40.0-44.9, adult; F17.210 Nicotine dependence, cigarettes, uncomplicated